=== PATIENT | male | born 1985 | race Caucasian/White ===

== ENCOUNTER 2018-10-15 16:30 | Inpatient (IN) | payer OTHER, SELFPAY ==
[~2018-10-15] VITALS: Ht 175.3 cm; Wt 73.0 kg
[2018-10-15] MEDS ORDERED: MORPHINE SULFATE 4 MG/ML CPJ (NOT FOR IM USE) IV STA (17:39)
[2018-10-15] MEDS ORDERED: SODIUM CHLORIDE 0.9% 1,000 ML IV ONE ×2 (17:39→19:00)
[2018-10-15] MEDS ORDERED: ONDANSETRON HCL 4MG/2ML INJ IV STA (17:39)
[2018-10-15 18:33] LABS: BASOPHILS % 1.1 % (0.0-2.0); CHLORIDE 104 mEq/L (98-107); EOSINOPHILS % 0.5 % (0.0-5.0); HEMATOCRIT. 50.3 % (42.0-52.0); HEMOGLOBIN. 17.2 g/dL (14.0-18.0); MEAN CORPUSCULAR HEMOGLOBIN 32.1 pg (28.0-32.0); MEAN CORPUSCULAR VOLUME 93.8 fL (80.0-94.0); MEAN PLATELET VOLUME 7.9 fl (7.4-10.4); MONOCYTES % 10.4 % (2.0-8.0); PLATELET 258 x1000/uL (130-400); RED BLOOD CELL COUNT 5.36 mill/uL (4.7-6.1); RED CELL DISTRIBUTION WIDTH 13.3 % (11.6-14.6)
[2018-10-15 18:34] LABS: INR 0.9; PROTHROMBIN TIME 9.5 sec (9.1-11.1)
[2018-10-15 18:37] LABS: ETHANOL BLOOD 294 mg/dL
[2018-10-15] MEDS ORDERED: MORPHINE SULFATE 4 MG/ML CPJ (NOT FOR IM USE) IV ONE ×2 (18:45→21:15)
[2018-10-15 19:43] LABS: CLARITY URINE CLEAR (CLEAR); COLOR URINE YELLOW (YELLOW); KETONES URINE TRACE (NEGATIVE); LEUKOCYTE ESTERASE URINE NEGATIVE (NEGATIVE); NITRITE URINE NEGATIVE (NEGATIVE); OCCULT BLOOD URINE NEGATIVE (NEGATIVE); PROTEIN URINE 2+ (NEGATIVE); SPECIFIC GRAVITY URINE 1.018 (1.005-1.030); UROBILINOGEN URINE 0.2 E.U./dL (0.2-1.0)
[2018-10-15] MEDS ORDERED: IOHEXOL-300 100 ML BOTTLE ONE (21:15)
[2018-10-15] MEDS ORDERED: KETOROLAC 30MG/ML VIAL IV ONE (21:30)
[2018-10-15] MEDS ORDERED: ONDANSETRON HCL 4MG/2ML INJ IV ONE (21:30)
[2018-10-15] MEDS ORDERED: DOCUSATE SODIUM 100MG CAPSULE PO PRN (22:15)
[2018-10-15] MEDS ORDERED: HYDRALAZINE 20MG/ML VIAL IV PRN (22:15)
[2018-10-15] MEDS ORDERED: HYDROCODONE/ACETAMINOPHEN 10/325MG TABLET PO PRN (22:15)
[2018-10-15] MEDS ORDERED: MAGNESIUM/ALUMINUM HYDROXIDE/SIMETHICONE 30ML UDC PO PRN (22:15)
[2018-10-15] MEDS ORDERED: NA PHOS,M-B/NA PHOS,DI-BA ENEMA 118ML PR PRN (22:15)
[2018-10-15] MEDS ORDERED: LORAZEPAM 2MG/ML CPJ IV PRN (22:15)
[2018-10-15] MEDS ORDERED: DIPHENHYDRAMINE 50MG/ML VIAL IV PRN (22:15)
[2018-10-15] MEDS ORDERED: ONDANSETRON HCL 4MG/2ML INJ IV PRN (22:15)
[2018-10-15] MEDS ORDERED: CLONIDINE 0.1MG TABLET PO PRN (22:15)
[2018-10-15] MEDS ORDERED: ACETAMINOPHEN 325MG TABLET PO PRN (22:15)
[2018-10-15] MEDS ORDERED: GUAIFENESIN 200MG/10ML SUGAR FREE UDC PO PRN (22:15)
[2018-10-15] MEDS ORDERED: HYDROMORPHONE HCL/PF 2MG/ML CPJ IV PRN (22:15)
[2018-10-15] MEDS ORDERED: IPRATROPIUM/ALBUTEROL 0.5-3(2.5)MG/3ML NEB INH PRN (22:15)
[2018-10-16] MEDS: SODIUM CHLORIDE 0.9% INJ 3ML FLUSH IVF SCH ×2 (03:59→15:46)
[2018-10-16] MEDS ORDERED: THIAMINE HCL 100MG TABLET PO NR (04:00)
[2018-10-16 04:20] VITALS: BP 156/97
[2018-10-16 04:37] VITALS: BP 156/97
[2018-10-16] MEDS ORDERED: MVI, ADULT NO.1 10 ML, FOLIC ACID 1 MG in SODIUM CHLORIDE 0.9% 1,000 ML IV SCH ×3 (06:00)
[2018-10-16 08:00] VITALS: BP 139/98
[2018-10-16 09:44] LABS: BASOPHILS % 0.7 % (0.0-2.0); EOSINOPHILS % 0.1 % (0.0-5.0); HEMATOCRIT. 46.3 % (42.0-52.0); HEMOGLOBIN. 15.6 g/dL (14.0-18.0); LYMPHOCYTES % 9.9 % (20.0-50.0); MEAN CORPUSCULAR HEMOGLOBIN 31.9 pg (28.0-32.0); MEAN CORPUSCULAR VOLUME 94.5 fL (80.0-94.0); MEAN PLATELET VOLUME 7.8 fl (7.4-10.4); MONOCYTES % 7.5 % (2.0-8.0); NEUTROPHILS % 81.8 % (40.0-76.0); PLATELET 186 x1000/uL (130-400); RED CELL DISTRIBUTION WIDTH 13.6 % (11.6-14.6)
[2018-10-16 09:48] LABS: CHLORIDE 98 mEq/L (98-107)
[2018-10-16 09:56] LABS: LDL CHOLESTEROL 131 mg/dL (5-100)
[2018-10-16 09:57] LABS: CREATINE KINASE 117 IU/L (39-308)
[2018-10-16 09:58] LABS: CREATINE KINASE MB FRACTION < 1.0 ng/mL (0.5-3.6); HDL CHOLESTEROL 66 mg/dL (40-59); T4 FREE 0.74 ng/dL (0.76-1.46)
[2018-10-16] MEDS ORDERED: POTASSIUM CHLORIDE 20MEQ TABLET SR PO NR (11:00)
[2018-10-16 12:03] VITALS: BP 152/99
[2018-10-16 14:04] VITALS: BP 152/99
[2018-10-16 16:23] VITALS: BP 133/88
[2018-10-16 16:49] LABS: CREATINE KINASE 145 IU/L (39-308)
[2018-10-16 16:50] LABS: CREATINE KINASE MB FRACTION < 1.0 ng/mL (0.5-3.6)
== END 2018-10-16 16:45 | disposition home or self-care (01) | DRG 115 ==
LOC: ER 16:30 → 5WST 21:32 → ENRESERV 10-16 02:19
PROVIDERS: ADMIT Internal Medicine; ATTEND Internal Medicine
DX: S19.9XXA Unspecified injury of neck, initial encounter (principal); E87.2 Acidosis; S09.8XXA Other specified injuries of head, initial encounter; E87.6 Hypokalemia; R74.0 Nonspecific elevation of levels of transaminase and lactic acid dehydrogenase [LDH]; S29.9XXA Unspecified injury of thorax, initial encounter; W18.39XA Other fall on same level, initial encounter; Y93.89 Activity, other specified; Z72.89 Other problems related to lifestyle; Y92.89 Other specified places as the place of occurrence of the external cause; Y99.8 Other external cause status
CPT/HCPCS: 36415; 71045; 71260; 74177; 80061; 82550; 82553; 83605; 84439; 84443; 84484; 96361; 96374; 96375; 99285; G0482; J1885; J2060; J2270; J2405; J3490; J7030; Q9967